=== PATIENT | female | born 1970 | race Caucasian/White ===

== ENCOUNTER 2019-06-10 13:06 | Emergency (ER) | payer SELFPAY ==
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
[2019-06-10 13:25] VITALS: BP 131/79; PULSE 90; RESP 18; TEMP 37.2; O2SAT 100
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
== END 2019-06-10 14:39 | disposition home or self-care (01) ==
PROVIDERS: Emergency Provider Registered Nurse
DX: M54.2 Cervicalgia (principal); M54.6 Pain in thoracic spine; I34.1 Nonrheumatic mitral (valve) prolapse
CPT/HCPCS: 72050; 72070; 99213; G0463